=== PATIENT | male | born 1980 | race Caucasian/White ===

== ENCOUNTER 2018-03-17 18:13 | Inpatient (IN) | payer MEDICAID ==
[~2018-03-17] VITALS: Ht 185.4 cm; Wt 96.3 kg
[~2018-03-17 18:13] MED LIST: ASPI-845 PO; ATOR40TA3 PO; LISI-600 PO; OMEP20CA10 PO
[2018-03-17] MEDS ORDERED: nitroGLYCERIN 0.4mg SUBLingual tab SL PRN ×2 (18:35→21:35)
[2018-03-17] MEDS ORDERED: aspirin 81mg tab.chew PO ONE (18:35)
[2018-03-17] MEDS ORDERED: normal saline 1000ml 1,000 ML IV ONE (18:40)
[2018-03-17 18:48] LABS: BASOPHILS % (AUTO) 0.5 % (0-1); EOSINOPHILS # (AUTO) 0.3 X10'3 (0-0.9); EOSINOPHILS % (AUTO) 3.6 % (0-6); HEMATOCRIT 46.7 % (42.0-52.0); HEMOGLOBIN 15.6 g/dl (14.0-17.9); LYMPHOCYTES # (AUTO) 1.4 X10'3 (1.1-4.8); LYMPHOCYTES % (AUTO) 15.6 % (21-51); MEAN CORPUSCULAR HEMOGLOBIN 29.3 PG (27.0-31.0); MEAN CORPUSCULAR HGB CONC 33.5 % (33.0-36.5); MEAN CORPUSCULAR VOLUME 87.5 FL (78-98); MEAN PLATELET VOLUME 7.6 FL (7.4-10.4); MONOCYTES # (AUTO) 0.5 X10'3 (0-0.9); MONOCYTES % (AUTO) 5.9 % (2-12); NEUTROPHILS # (AUTO) 6.4 X10'3 (1.8-7.7); NEUTROPHILS % (AUTO) 74.4 % (42-75); PLATELET COUNT 257 X10'3 (140-440); RED BLOOD COUNT 5.34 X10'6 (4.70-6.10); RED CELL DISTRIBUTION WIDTH 13.7 % (11.5-14.5); WHITE BLOOD COUNT 8.7 X10'3 (4.5-11.0)
[2018-03-17] MEDS ORDERED: LORazepam 2 mg/ml vial IV ONE (19:00)
[2018-03-17 19:04] LABS: INR 0.9 INR; PARTIAL THROMBOPLASTIN TIME 30 SECONDS (22-32); PROTHROMBIN TIME 9.6 SECONDS (9.0-12.0)
[2018-03-17] MEDS ORDERED: RANI150T8 PO (19:07)
[2018-03-17] MEDS ORDERED: SERT100T10 PO (19:07)
[2018-03-17] MEDS ORDERED: CHLO50TA PO (19:07)
[2018-03-17] MEDS ORDERED: DILT120C51 PO (19:07)
[2018-03-17] MEDS ORDERED: ISOS120T9 PO (19:07)
[2018-03-17] MEDS ORDERED: CARV25TA PO (19:07)
[2018-03-17] MEDS ORDERED: NIFE90TA44 PO (19:07)
[2018-03-17] MEDS ORDERED: FLUT16SP2 BOTHNARES (19:07)
[2018-03-17] MEDS ORDERED: CLON-527 PO (19:07)
[2018-03-17] MEDS ORDERED: HYDR25TA4 PO (19:07)
[2018-03-17] MEDS ORDERED: AMIT-189 PO (19:07)
[2018-03-17] MEDS ORDERED: LORA10TA7 PO (19:07)
[2018-03-17] MEDS ORDERED: AMLO2.5T2 PO (19:07)
[2018-03-17 19:08] LABS: ALANINE AMINOTRANSFERASE 50 U/L (12-78); ALBUMIN 3.9 G/DL (3.4-5.0); ALBUMIN/GLOBULIN RATIO 1.1 (1.1-1.5); ALKALINE PHOSPHATASE 96 IU/L (46-116); ANION GAP 13 (8-16); ASPARTATE AMINO TRANSFERASE 27 U/L (10-37); BILIRUBIN,TOTAL 0.3 MG/DL (0.1-1.0); BLOOD UREA NITROGEN 22 MG/DL (7-18); BUN/CREATININE RATIO 11.2 (5.4-32.0); CALCIUM 8.9 MG/DL (8.5-10.1); CHLORIDE 103 MMOL/L (99-107); CREATININE 1.96 MG/DL (0.60-1.10); GLUCOSE 136 MG/DL (70-104); POTASSIUM 3.2 MMOL/L (3.5-5.1); SODIUM 143 MMOL/L (135-145); TOTAL PROTEIN 7.5 G/DL (6.4-8.2); eGFR 39 ML/MIN
[2018-03-17 19:15] LABS: MAGNESIUM 1.8 MG/DL (1.5-2.4)
[2018-03-17 19:58] LABS: D-DIMER 0.29 MG/L FEU (0-0.50)
[2018-03-17] MEDS ORDERED: temazepam 15mg capsule PO PRN (21:00)
[2018-03-17] MEDS ORDERED: amitriptyline 25mg tablet PO SCH ×2 (21:00→23:44)
[2018-03-17] MEDS ORDERED: magnesium hydroxide 30ml (MOM) UD suspension PO PRN (21:30)
[2018-03-17] MEDS ORDERED: ondansetron/PF 4mg/2ml inj IV PRN (21:30)
[2018-03-17] MEDS ORDERED: diphenhydrAMINE 25mg capsule PO PRN (21:30)
[2018-03-17] MEDS ORDERED: morphine 2 MG/ML inj. syringe IV PRN (21:30)
[2018-03-17] MEDS ORDERED: potassium Cl 20 mEq SR tablet PO PRN (21:30)
[2018-03-17] MEDS ORDERED: potassium Cl 40MEQ/NS 500ml 500 ML IV PRN ×2 (21:30)
[2018-03-17] MEDS ORDERED: aspirin 325mg tablet, delayed-release (Ecotrin) PO PRN (21:30)
[2018-03-17] MEDS ORDERED: acetaminophen 325mg tablet PO PRN ×2 (21:30)
[2018-03-17] MEDS ORDERED: HYDROmorphone 1 mg/ml syringe IV PRN (21:30)
[2018-03-17] MEDS ORDERED: metoclopramide 5 mg/ml inj IV PRN (21:30)
[2018-03-17] MEDS ORDERED: HYDROcodone/acetaminophen 10/325mg tab PO PRN (21:30)
[2018-03-17] MEDS ORDERED: bisacodyl 10mg suppository rectal RC PRN (21:30)
[2018-03-17] MEDS ORDERED: acetaminophen 650mg rectal suppository RC PRN (21:30)
[2018-03-17] MEDS ORDERED: mag hydrox/Alum hydrox/simeth 30ml oral suspension PO PRN (21:30)
[2018-03-17] MEDS ORDERED: amitryptiline 50mg tablet PO SCH (21:32)
[2018-03-17] MEDS ORDERED: hydrALAZINE 20mg/ml inj. IV PRN (21:35)
[2018-03-17] MEDS ORDERED: regadenoson 0.4mg/5ml syringe IV ONE (21:35)
[2018-03-17] MEDS ORDERED: metoprolol tartrate 1mg/ml inj IV PRN (21:35)
[2018-03-17] MEDS ORDERED: aminophylline 250mg/10ml inj. IV PRN (21:35)
[2018-03-17] MEDS ORDERED: ondansetron/PF 4mg/2ml inj IV ONE (21:45)
[2018-03-17 21:55] LABS: HEMOGLOBIN A1C 5.3 % (4.5-6.2)
[2018-03-17 22:06] LABS: PHOSPHORUS 1.9 MG/DL (2.3-4.5)
[2018-03-17] MEDS: HYDROmorphone 1 mg/ml syringe IV PRN (22:06)
[2018-03-17 22:18] LABS: URINE AMPHETAMINE SCREEN NEGATIVE (Neg); URINE BARBITUATE SCREEN NEGATIVE (Neg); URINE BENZODIAZEPINES SCREEN NEGATIVE (Neg); URINE CANNABINOID SCREEN POSITIVE (Neg); URINE COCAINE SCREEN NEGATIVE (Neg); URINE METHADONE SCREEN NEGATIVE (Neg); URINE OPIATE SCREEN NEGATIVE (Neg); URINE PHENCYCLIDINE SCREEN NEGATIVE (Neg)
[2018-03-17 22:20] LABS: CLARITY,URINE CLEAR (Clear); COLOR,URINE YELLOW (Yellow); GLUCOSE, URINE NEGATIVE (Neg); KETONES,URINE NEGATIVE (Neg); LEUKOCYTE ESTERASE ,URINE NEGATIVE (Neg); NITRITES, URINE NEGATIVE (Neg); OCCULT BLOOD,URINE SMALL (Neg); PH,URINE 7.5 (4.8-8.0); PROTEIN,URINE NEGATIVE (Neg); UROBILINOGEN,URINE 0.2 E.U/dL (0.2-1.0)
[2018-03-17 22:25] LABS: UA COLLECTION TYPE NON-SPECIFIED
[2018-03-17 22:26] LABS: BACTERIA,URINE FEW /HPF (Neg); SQUAMOUS EPITHELIAL CELL,UR FEW /LPF (FEW); WBC,URINE 0-4 /HPF (0-4)
[2018-03-17 22:27] LABS: RBC,URINE 0-2 /HPF (0-2)
[2018-03-17 23:45] VITALS: BP 181/127
[2018-03-17] MEDS: potassium Cl 20 mEq SR tablet PO PRN (23:51)
[2018-03-17] MEDS: potassium cl 20mEq in 1/2 NS 1,000 ML IV SCH (23:52)
[2018-03-18] VITALS (12 sets, daily range): BP systolic 95–148; BP diastolic 59–100
[2018-03-18] MEDS: HYDROmorphone 1 mg/ml syringe IV PRN ×4 (03:41→23:18)
[2018-03-18 07:03] LABS: BASOPHILS % (AUTO) 0.6 % (0-1); EOSINOPHILS # (AUTO) 0.4 X10'3 (0-0.9); EOSINOPHILS % (AUTO) 4.8 % (0-6); HEMATOCRIT 40.2 % (42.0-52.0); HEMOGLOBIN 13.6 g/dl (14.0-17.9); LYMPHOCYTES # (AUTO) 1.7 X10'3 (1.1-4.8); LYMPHOCYTES % (AUTO) 22.7 % (21-51); MEAN CORPUSCULAR HEMOGLOBIN 29.4 PG (27.0-31.0); MEAN CORPUSCULAR HGB CONC 33.7 % (33.0-36.5); MEAN CORPUSCULAR VOLUME 87.1 FL (78-98); MEAN PLATELET VOLUME 7.8 FL (7.4-10.4); MONOCYTES # (AUTO) 0.8 X10'3 (0-0.9); MONOCYTES % (AUTO) 9.9 % (2-12); NEUTROPHILS # (AUTO) 4.7 X10'3 (1.8-7.7); PLATELET COUNT 222 X10'3 (140-440); RED BLOOD COUNT 4.62 X10'6 (4.70-6.10); WHITE BLOOD COUNT 7.6 X10'3 (4.5-11.0)
[2018-03-18 07:20] LABS: ALANINE AMINOTRANSFERASE 39 U/L (12-78); ALBUMIN 3.1 G/DL (3.4-5.0); ALKALINE PHOSPHATASE 82 IU/L (46-116); ANION GAP 6 (8-16); ASPARTATE AMINO TRANSFERASE 24 U/L (10-37); BILIRUBIN,TOTAL 0.4 MG/DL (0.1-1.0); BLOOD UREA NITROGEN 19 MG/DL (7-18); BUN/CREATININE RATIO 10.7 (5.4-32.0); CALCIUM 8.1 MG/DL (8.5-10.1); CHLORIDE 106 MMOL/L (99-107); CREATININE 1.78 MG/DL (0.60-1.10); GLUCOSE 84 MG/DL (70-104); POTASSIUM 3.7 MMOL/L (3.5-5.1); SODIUM 142 MMOL/L (135-145); TOTAL CARBON DIOXIDE 30.3 MMOL/L (24-32); TOTAL PROTEIN 6.2 G/DL (6.4-8.2); eGFR 43 ML/MIN
[2018-03-18 07:23] LABS: CHOL/HDL RATIO 5.7 (0.00-4.99); CHOLESTEROL 195 MG/DL (0-200); HDL CHOLESTEROL 34 MG/DL (35-60); LDL CHOLESTEROL 128 MG/DL (50-100); TRIGLYCERIDES 210 MG/DL (20-135)
[2018-03-18] MEDS: potassium cl 20mEq in 1/2 NS 1,000 ML IV SCH ×2 (07:28→18:11)
[2018-03-18] MEDS ORDERED: enoxaparin 40mg/0.4ml syringe SQ SCH (08:00)
[2018-03-18] MEDS ORDERED: atorvastatin 20mg tablet PO SCH (08:00)
[2018-03-18] MEDS: K and/or MAG REPLACEMENT MC SCH (08:00)
[2018-03-18] MEDS: Neutra Phos packet PO SCH ×2 (08:04→20:38)
[2018-03-18] MEDS: amLODIPine 5mg tablet PO SCH (08:05)
[2018-03-18] MEDS: famotidine 20mg tablet PO SCH ×2 (08:05→20:39)
[2018-03-18] MEDS: clonazePAM 1mg tablet PO SCH ×2 (08:05→20:38)
[2018-03-18] MEDS: diltiazem CD 120mg capsule (once-daily) PO SCH (08:06)
[2018-03-18] MEDS: sertraline 50mg tablet PO SCH (08:06)
[2018-03-18] MEDS: loratadine 10mg tablet PO SCH (08:06)
[2018-03-18] MEDS: docusate sod 100mg capsule PO SCH ×2 (08:06→20:37)
[2018-03-18] MEDS: isosorbide mononitrate 30mg tab.SR.24H PO SCH (08:07)
[2018-03-18] MEDS: carVEDilol 12.5mg tablet PO SCH ×2 (08:07→20:38)
[2018-03-18 09:10] LABS: C-REACTIVE PROTEIN 0.26 MG/DL (0.0-0.5)
[2018-03-18] MEDS ORDERED: salt irrigation nasal spray 45 ML SPRAY NS PRN (10:30)
[2018-03-18] MEDS ORDERED: aminophylline inj. 10 ML IV ONE (11:30)
[2018-03-18] MEDS ORDERED: regadenoson 0.4mg/5ml syringe IV ONE (11:30)
[2018-03-18] MEDS: NIFEdipine XL 30mg tablet PO SCH (13:18)
[2018-03-18] MEDS: fluticasone nasal spray 16GM bottle NS SCH (13:18)
[2018-03-18] MEDS ORDERED: enoxaparin 100mg/ml syringe SUBCUT SCH (20:00)
[2018-03-19 00:35] VITALS: BP 114/72
[2018-03-19] MEDS: potassium cl 20mEq in 1/2 NS 1,000 ML IV SCH ×2 (03:22→13:28)
[2018-03-19 04:32] LABS: ALANINE AMINOTRANSFERASE 36 U/L (12-78); ALKALINE PHOSPHATASE 89 IU/L (46-116); ANION GAP 8 (8-16); ASPARTATE AMINO TRANSFERASE 21 U/L (10-37); BASOPHILS % (AUTO) 0.6 % (0-1); BILIRUBIN,TOTAL 0.5 MG/DL (0.1-1.0); BLOOD UREA NITROGEN 18 MG/DL (7-18); BUN/CREATININE RATIO 10.7 (5.4-32.0); CALCIUM 8.2 MG/DL (8.5-10.1); CHLORIDE 103 MMOL/L (99-107); CREATININE 1.69 MG/DL (0.60-1.10); EOSINOPHILS # (AUTO) 0.4 X10'3 (0-0.9); EOSINOPHILS % (AUTO) 5.7 % (0-6); GLUCOSE 104 MG/DL (70-104); HEMATOCRIT 41.9 % (42.0-52.0); LYMPHOCYTES # (AUTO) 1.6 X10'3 (1.1-4.8); LYMPHOCYTES % (AUTO) 20.8 % (21-51); MEAN CORPUSCULAR HEMOGLOBIN 29.2 PG (27.0-31.0); MEAN CORPUSCULAR HGB CONC 33.5 % (33.0-36.5); MEAN CORPUSCULAR VOLUME 87.3 FL (78-98); MEAN PLATELET VOLUME 7.7 FL (7.4-10.4); MONOCYTES # (AUTO) 0.6 X10'3 (0-0.9); MONOCYTES % (AUTO) 8.3 % (2-12); NEUTROPHILS % (AUTO) 64.6 % (42-75); PLATELET COUNT 225 X10'3 (140-440); POTASSIUM 3.4 MMOL/L (3.5-5.1); RED BLOOD COUNT 4.81 X10'6 (4.70-6.10); RED CELL DISTRIBUTION WIDTH 13.8 % (11.5-14.5); SODIUM 140 MMOL/L (135-145); TOTAL PROTEIN 6.1 G/DL (6.4-8.2); WHITE BLOOD COUNT 7.7 X10'3 (4.5-11.0); eGFR 46 ML/MIN
[2018-03-19 07:00] VITALS: BP 112/77
[2018-03-19] MEDS: K and/or MAG REPLACEMENT MC SCH (08:00)
[2018-03-19] MEDS: Neutra Phos packet PO SCH (08:00)
[2018-03-19] MEDS ORDERED: atorvastatin 20mg tablet PO SCH (08:00)
[2018-03-19] MEDS ORDERED: aspirin 81mg tablet.DR PO SCH (08:35)
[2018-03-19] MEDS: carVEDilol 12.5mg tablet PO SCH (08:46)
[2018-03-19] MEDS: potassium Cl 20 mEq SR tablet PO PRN (08:46)
[2018-03-19] MEDS: docusate sod 100mg capsule PO SCH (08:46)
[2018-03-19] MEDS: sertraline 50mg tablet PO SCH (08:47)
[2018-03-19] MEDS: isosorbide mononitrate 30mg tab.SR.24H PO SCH (08:47)
[2018-03-19] MEDS: diltiazem CD 120mg capsule (once-daily) PO SCH (08:47)
[2018-03-19] MEDS: loratadine 10mg tablet PO SCH (08:47)
[2018-03-19] MEDS: famotidine 20mg tablet PO SCH (08:48)
[2018-03-19] MEDS: amLODIPine 5mg tablet PO SCH (08:48)
[2018-03-19] MEDS: NIFEdipine XL 30mg tablet PO SCH (08:48)
[2018-03-19] MEDS: clonazePAM 1mg tablet PO SCH (08:48)
[2018-03-19] MEDS: fluticasone nasal spray 16GM bottle NS SCH (08:49)
[2018-03-19] MEDS: HYDROmorphone 1 mg/ml syringe IV PRN ×2 (08:51→13:57)
[2018-03-19 11:00] VITALS: BP 144/60
[2018-03-19] MEDS ORDERED: HYDR-4383 PO (11:34)
== END 2018-03-19 14:33 | disposition home or self-care (01) | DRG 199 ==
LOC: ER 18:14 → ED HOLD 21:28 → SUR 3N 23:38
PROVIDERS: ADMIT Family Medicine; ATTEND Family Medicine
PROC: 4A02XM4 Measurement of Cardiac Total Activity, External Approach (ICD-10-PCS; principal; 2018-03-18)
PROC: 3E033HZ Introduction of Radioactive Substance into Peripheral Vein, Percutaneous Approach (ICD-10-PCS; 2018-03-18)
DX: I16.0 Hypertensive urgency (principal); N17.9 Acute kidney failure, unspecified; E83.39 Other disorders of phosphorus metabolism; N18.3 Chronic kidney disease, stage 3 (moderate); N28.1 Cyst of kidney, acquired; M94.0 Chondrocostal junction syndrome [Tietze]; E78.5 Hyperlipidemia, unspecified; E87.6 Hypokalemia; F12.90 Cannabis use, unspecified, uncomplicated; K76.9 Liver disease, unspecified; I12.9 Hypertensive chronic kidney disease with stage 1 through stage 4 chronic kidney disease, or unspecified chronic kidney disease; I25.10 Atherosclerotic heart disease of native coronary artery without angina pectoris; I25.2 Old myocardial infarction; Z79.899 Other long term (current) drug therapy; Z79.82 Long term (current) use of aspirin; Z82.49 Family history of ischemic heart disease and other diseases of the circulatory system; Z84.1 Family history of disorders of kidney and ureter
CPT/HCPCS: 36415; 71045; 78452; 80053; 80061; 80305; 81001; 83036; 83735; 83880; 84100; 84443; 84484; 85025; 85379; 85610; 85651; 85730; 86140; 87070; 93005; 93017; 93306; 96361; 96374; 99285; A9500; G0378; J0280; J1170; J1650; J2060; J2270; J2405

== ENCOUNTER 2020-05-19 15:40 | Inpatient (IN) | payer MEDICAID ==
[~2020-05-19] VITALS: Ht 185.4 cm; Wt 97.0 kg
[~2020-05-19 15:40] MED LIST changes: +AMIT-189 PO; +AMLO2.5T2 PO; -ATOR40TA3 PO; +ATOR40TA7 PO; +CARV25TA PO; +CLON-527 PO; +DILT120C51 PO; +FLUT16SP2 BOTHNARES; +HYDR-4383 PO; +ISOS120T13 PO; -LISI-600 PO; +LORA10TA7 PO; -OMEP20CA10 PO; +RANI150T8 PO; +SERT100T10 PO
[2020-05-19] MEDS ORDERED: acetaminophen 650mg rectal suppository RC STA (17:14)
[2020-05-19] MEDS ORDERED: cloNIDine 0.1 mg tablet PO ONE (17:15)
[2020-05-19] MEDS ORDERED: ondansetron 4mg rapidly disintigrating tab PO ONE (17:15)
[2020-05-19] MEDS ORDERED: acetaminophen 325mg tablet PO ONE (17:30)
[2020-05-19 17:38] LABS: BASOPHILS % (AUTO) 0.5 % (0-1); EOSINOPHILS # (AUTO) 0.1 X10'3 (0-0.9); EOSINOPHILS % (AUTO) 1.3 % (0-6); HEMATOCRIT 46.9 % (42.0-52.0); HEMOGLOBIN 15.8 g/dl (14.0-17.9); LYMPHOCYTES % (AUTO) 10.6 % (21-51); MEAN CORPUSCULAR HEMOGLOBIN 29.7 PG (27.0-31.0); MEAN CORPUSCULAR HGB CONC 33.6 g/dL (33.0-36.5); MEAN CORPUSCULAR VOLUME 88.4 FL (78-98); MEAN PLATELET VOLUME 8.1 FL (7.4-10.4); MONOCYTES # (AUTO) 0.5 X10'3 (0-0.9); MONOCYTES % (AUTO) 5.3 % (2-12); NEUTROPHILS # (AUTO) 7.6 X10'3 (1.8-7.7); NEUTROPHILS % (AUTO) 82.3 % (42-75); PLATELET COUNT 242 X10'3 (140-440); RED BLOOD COUNT 5.31 X10'6 (4.70-6.10); RED CELL DISTRIBUTION WIDTH 14.3 % (11.5-14.5); WHITE BLOOD COUNT 9.3 X10'3 (4.5-11.0)
[2020-05-19 17:40] LABS: CLARITY,URINE CLEAR (Clear); COLOR,URINE YELLOW (Yellow); GLUCOSE, URINE NEGATIVE (Neg); KETONES,URINE NEGATIVE (Neg); LEUKOCYTE ESTERASE ,URINE NEGATIVE (Neg); NITRITES, URINE NEGATIVE (Neg); OCCULT BLOOD,URINE SMALL (Neg); PROTEIN,URINE 100 mg/dl (Neg); UROBILINOGEN,URINE 0.2 E.U/dL (0.2-1.0)
[2020-05-19 17:43] LABS: UA COLLECTION TYPE CLN CATCH MIDSTREAM
[2020-05-19 17:46] LABS: ALANINE AMINOTRANSFERASE 22 U/L (12-78); ALBUMIN/GLOBULIN RATIO 1.3 (1.1-1.5); ALKALINE PHOSPHATASE 89 IU/L (46-116); ANION GAP 9 (8-16); ASPARTATE AMINO TRANSFERASE 17 U/L (10-37); BILIRUBIN,TOTAL 0.7 MG/DL (0.1-1.0); BLOOD UREA NITROGEN 34 MG/DL (7-18); BUN/CREATININE RATIO 10.3 (5.4-32.0); CALCIUM 8.4 MG/DL (8.5-10.1); CHLORIDE 105 MMOL/L (99-107); CREATININE 3.31 MG/DL (0.60-1.10); GLUCOSE 94 MG/DL (70-104); POTASSIUM 3.6 MMOL/L (3.5-5.1); SODIUM 141 MMOL/L (135-145); TOTAL PROTEIN 7.1 G/DL (6.4-8.2); eGFR 21 ML/MIN
[2020-05-19 17:48] LABS: TROPONIN I < 0.04 NG/ML (0.0-0.05)
[2020-05-19 17:51] LABS: BACTERIA,URINE FEW /HPF (Neg); RBC,URINE 0-2 /HPF (0-2); SQUAMOUS EPITHELIAL CELL,UR NONE SEEN /LPF (FEW); WBC,URINE 0-4 /HPF (0-4)
--- NOTE | 2020-05-19 18:21 | NUR ---
Assumed care of Pt. He is resting in bed, complaining of headache with no other complaints at this time, no obvious distress noted.
[2020-05-19] MEDS ORDERED: normal saline 1000ML IV soln IVB ONE (18:35)
[2020-05-19] MEDS ORDERED: ASPI-1265 PO (19:31)
[2020-05-19] MEDS ORDERED: AMLO10TA PO (19:31)
[2020-05-19] MEDS ORDERED: CARV6.252 PO (19:31)
[2020-05-19] MEDS ORDERED: mag hydrox/Alum hydrox/simeth 30ml oral suspension PO PRN (20:10)
[2020-05-19] MEDS ORDERED: magnesium 2GM in 50ml NS 50 ML IV PRN (20:10)
[2020-05-19] MEDS ORDERED: potassium Cl 20 mEq SR tablet PO PRN ×2 (20:10)
[2020-05-19] MEDS ORDERED: potassium Cl 40MEQ/1/2NS 520ml 520 ML IV PRN ×2 (20:10)
[2020-05-19] MEDS ORDERED: magnesium Cl slow-release 64mg tablet PO PRN (20:10)
[2020-05-19] MEDS ORDERED: ondansetron/PF 4mg/2ml inj IV PRN (20:10)
[2020-05-19] MEDS ORDERED: acetaminophen 325mg tablet PO PRN (20:10)
[2020-05-19] MEDS ORDERED: magnesium 4gm in 100ml NS 100 ML IV PRN (20:10)
[2020-05-19] MEDS ORDERED: magnesium hydroxide 30ml (MOM) UD suspension PO PRN (20:10)
[2020-05-19] MEDS ORDERED: ondansetron/PF 4mg/2ml inj IM PRN (20:20)
--- NOTE | 2020-05-19 20:50 | NUR ---
pt to floor
[2020-05-19 21:00] VITALS: BP 176/108
--- NOTE | 2020-05-19 21:10 | NUR ---
Rcvd report from Charo MONROE in ED
[2020-05-19 21:12] LABS: D-DIMER 0.56 MG/L FEU (0-0.50)
[2020-05-19 21:14] LABS: C-REACTIVE PROTEIN 0.27 MG/DL (0.0-0.5)
[2020-05-19] MEDS ORDERED: carVEDilol 3.125mg tablet PO SCH (22:00)
[2020-05-19] MEDS: normal saline 1000ml 1,000 ML IV SCH (22:16)
[2020-05-19] MEDS ORDERED: ESCI10TA66 PO (22:24)
[2020-05-19] MEDS ORDERED: MIRT15TA8 PO (22:24)
[2020-05-19] MEDS ORDERED: HYDR-3717 PO (22:24)
[2020-05-19] MEDS: K and/or MAG REPLACEMENT MC SCH (22:38)
[2020-05-19 23:18] VITALS: BP 157/85
[2020-05-20] MEDS: oxymetazoline 15 ML nasal spray NS SCH ×3 (00:26→21:18)
[2020-05-20 02:00] VITALS: BP 148/84
[2020-05-20 06:00] VITALS: BP 94/74
[2020-05-20] MEDS: normal saline 1000ml 1,000 ML IV SCH ×3 (06:10→21:19)
--- NOTE | 2020-05-20 06:10 | NUR ---
Patient in room ORTHO 4014. I have received report from Adia and had the opportunity to ask questions and assume patient care.
--- NOTE | 2020-05-20 06:21 | NUR ---
Problems reprioritized. Patient report given, questions answered & plan of care reviewed with Lina MONROE.
[2020-05-20 07:32] LABS: HEMATOCRIT 43.5 % (42.0-52.0); HEMOGLOBIN 14.7 g/dl (14.0-17.9); MEAN CORPUSCULAR HEMOGLOBIN 30.1 PG (27.0-31.0); MEAN CORPUSCULAR HGB CONC 33.8 g/dL (33.0-36.5); MEAN CORPUSCULAR VOLUME 89.2 FL (78-98); PLATELET COUNT 182 X10'3 (140-440); RED BLOOD COUNT 4.87 X10'6 (4.70-6.10); RED CELL DISTRIBUTION WIDTH 14.5 % (11.5-14.5); WHITE BLOOD COUNT 6.1 X10'3 (4.5-11.0)
[2020-05-20 07:41] LABS: ALBUMIN 3.4 G/DL (3.4-5.0); ANION GAP 11 (8-16); BLOOD UREA NITROGEN 30 MG/DL (7-18); BUN/CREATININE RATIO 10.4 (5.4-32.0); CALCIUM 8.1 MG/DL (8.5-10.1); CHLORIDE 108 MMOL/L (99-107); CREATININE 2.88 MG/DL (0.60-1.10); GLUCOSE 85 MG/DL (70-104); MAGNESIUM 1.9 MG/DL (1.5-2.4); POTASSIUM 3.7 MMOL/L (3.5-5.1); SODIUM 144 MMOL/L (135-145); TOTAL CARBON DIOXIDE 24.7 MMOL/L (24-32); eGFR 25 ML/MIN
[2020-05-20] MEDS ORDERED: non-formulary drug (Amlodipine Besylate 1 TABLET) PO SCH (08:00)
[2020-05-20] MEDS ORDERED: carvedilol 6.25mg tablet PO SCH (08:00)
[2020-05-20] MEDS: famotidine 20mg tablet PO SCH ×2 (08:01→21:11)
[2020-05-20] MEDS: hydrOXYzine 10 MG tablet PO SCH ×3 (08:01→21:11)
[2020-05-20] MEDS: carvedilol 6.25mg tablet PO SCH ×2 (08:01→21:11)
[2020-05-20] MEDS: loratadine 10mg tablet PO SCH (08:01)
[2020-05-20] MEDS: ESCITALOPRAM OXALATE 5 MG TABLET PO SCH (08:02)
[2020-05-20] MEDS: amLODIPine 5mg tablet PO SCH (08:02)
[2020-05-20] MEDS: aspirin 81mg tab.chew PO SCH (08:03)
[2020-05-20 10:00] VITALS: BP 106/73
[2020-05-20 14:00] VITALS: BP 137/101
--- NOTE | 2020-05-20 14:32 | NUR ---
promotional table spacer PAGER ID: [phone] MESSAGE: [id number] OFE DURAN Pt nauseous after eating 25% pf meal. Hes not sure if he feels safe going home tonight might need one more night. #[id number] Lina (144 character message out of a maximum of 240)
[2020-05-20 18:00] VITALS: BP 157/88
[2020-05-20 19:18] LABS: OCCULT BLOOD STOOL NEGATIVE (Neg)
[2020-05-20] MEDS: K and/or MAG REPLACEMENT MC SCH (20:00)
[2020-05-20] MEDS: mirtazapine 15mg tablet PO SCH (21:11)
[2020-05-20 22:00] VITALS: BP 130/83
[2020-05-20] MEDS: HYDROcodone/acetaminophen 5mg/325mg tablet PO PRN (23:17)
[2020-05-21 02:00] VITALS: BP 159/79
[2020-05-21 06:10] VITALS: BP 146/84
--- NOTE | 2020-05-21 06:30 | NUR ---
Patient in room ORTHO 4014. I have received report from Ashli RN and had the opportunity to ask questions and assume patient care.
[2020-05-21 07:14] LABS: HEMATOCRIT 45.1 % (42.0-52.0); HEMOGLOBIN 15.1 g/dl (14.0-17.9); MEAN CORPUSCULAR HEMOGLOBIN 29.7 PG (27.0-31.0); MEAN CORPUSCULAR HGB CONC 33.4 g/dL (33.0-36.5); MEAN CORPUSCULAR VOLUME 88.8 FL (78-98); MEAN PLATELET VOLUME 7.9 FL (7.4-10.4); PLATELET COUNT 180 X10'3 (140-440); RED BLOOD COUNT 5.08 X10'6 (4.70-6.10); RED CELL DISTRIBUTION WIDTH 14.5 % (11.5-14.5)
[2020-05-21 07:19] LABS: ALBUMIN 3.5 G/DL (3.4-5.0); ANION GAP 10 (8-16); BLOOD UREA NITROGEN 26 MG/DL (7-18); BUN/CREATININE RATIO 9.3 (5.4-32.0); CALCIUM 8.3 MG/DL (8.5-10.1); CHLORIDE 109 MMOL/L (99-107); CREATININE 2.81 MG/DL (0.60-1.10); GLUCOSE 84 MG/DL (70-104); MAGNESIUM 1.9 MG/DL (1.5-2.4); POTASSIUM 3.7 MMOL/L (3.5-5.1); SODIUM 144 MMOL/L (135-145); TOTAL CARBON DIOXIDE 24.8 MMOL/L (24-32); eGFR 25 ML/MIN
[2020-05-21] MEDS: HYDROcodone/acetaminophen 5mg/325mg tablet PO PRN ×3 (07:19→20:02)
[2020-05-21] MEDS: aspirin 81mg tab.chew PO SCH (07:19)
[2020-05-21] MEDS: loratadine 10mg tablet PO SCH (07:19)
[2020-05-21] MEDS: hydrOXYzine 10 MG tablet PO SCH ×3 (07:19→20:01)
[2020-05-21] MEDS: famotidine 20mg tablet PO SCH ×2 (07:19→20:01)
[2020-05-21] MEDS: amLODIPine 5mg tablet PO SCH (07:20)
[2020-05-21] MEDS: ESCITALOPRAM OXALATE 5 MG TABLET PO SCH (07:20)
[2020-05-21] MEDS: K and/or MAG REPLACEMENT MC SCH ×2 (08:00→20:00)
[2020-05-21] MEDS: normal saline 1000ml 1,000 ML IV SCH ×2 (08:09→18:08)
[2020-05-21] MEDS: ondansetron/PF 4mg/2ml inj IV PRN (08:13)
[2020-05-21] MEDS: oxymetazoline 15 ML nasal spray NS SCH ×2 (08:41→20:02)
[2020-05-21] MEDS: carvedilol 6.25mg tablet PO SCH ×2 (09:49→20:02)
[2020-05-21 10:00] VITALS: BP 159/102
[2020-05-21 14:00] VITALS: BP 174/112
--- NOTE | 2020-05-21 14:15 | NUR ---
paged Dr. Stewart regarding patient high BP and patient headache.
[2020-05-21] MEDS ORDERED: cloNIDine 0.1 mg tablet PO ONE (14:25)
[2020-05-21] MEDS: morphine 2 MG/ML inj. syringe IV PRN ×2 (15:09→22:51)
[2020-05-21 18:00] VITALS: BP 164/111
--- NOTE | 2020-05-21 18:08 | NUR ---
Patient report given to Kira MONROE
[2020-05-21] MEDS: mirtazapine 15mg tablet PO SCH (20:01)
[2020-05-21 22:00] VITALS: BP 144/95
[2020-05-22 02:00] VITALS: BP 96/38
[2020-05-22] MEDS: normal saline 1000ml 1,000 ML IV SCH (03:26)
[2020-05-22 06:10] VITALS: BP 156/93
--- NOTE | 2020-05-22 06:12 | NUR ---
Problems reprioritized. Patient report given, questions answered & plan of care reviewed with Vivi MONROE.
[2020-05-22 07:13] LABS: HEMATOCRIT 47.3 % (42.0-52.0); HEMOGLOBIN 15.9 g/dl (14.0-17.9); MEAN CORPUSCULAR HEMOGLOBIN 29.8 PG (27.0-31.0); MEAN CORPUSCULAR HGB CONC 33.7 g/dL (33.0-36.5); MEAN CORPUSCULAR VOLUME 88.5 FL (78-98); MEAN PLATELET VOLUME 8.1 FL (7.4-10.4); PLATELET COUNT 207 X10'3 (140-440); RED BLOOD COUNT 5.35 X10'6 (4.70-6.10); RED CELL DISTRIBUTION WIDTH 14.1 % (11.5-14.5); WHITE BLOOD COUNT 7.1 X10'3 (4.5-11.0)
[2020-05-22 07:23] LABS: ALBUMIN 3.7 G/DL (3.4-5.0); ANION GAP 10 (8-16); BLOOD UREA NITROGEN 23 MG/DL (7-18); BUN/CREATININE RATIO 8.5 (5.4-32.0); CALCIUM 8.4 MG/DL (8.5-10.1); CHLORIDE 109 MMOL/L (99-107); GLUCOSE 88 MG/DL (70-104); MAGNESIUM 1.9 MG/DL (1.5-2.4); POTASSIUM 3.3 MMOL/L (3.5-5.1); SODIUM 145 MMOL/L (135-145); TOTAL CARBON DIOXIDE 25.6 MMOL/L (24-32); eGFR 27 ML/MIN
[2020-05-22] MEDS: aspirin 81mg tab.chew PO SCH (07:53)
[2020-05-22] MEDS: loratadine 10mg tablet PO SCH (07:53)
[2020-05-22] MEDS: famotidine 20mg tablet PO SCH (07:53)
[2020-05-22] MEDS: hydrOXYzine 10 MG tablet PO SCH (07:53)
[2020-05-22] MEDS: ESCITALOPRAM OXALATE 5 MG TABLET PO SCH (07:53)
[2020-05-22] MEDS: amLODIPine 5mg tablet PO SCH (07:58)
[2020-05-22] MEDS: HYDROcodone/acetaminophen 5mg/325mg tablet PO PRN (07:58)
[2020-05-22] MEDS: carvedilol 6.25mg tablet PO SCH (07:58)
[2020-05-22] MEDS: oxymetazoline 15 ML nasal spray NS SCH (08:00)
[2020-05-22] MEDS: K and/or MAG REPLACEMENT MC SCH (08:00)
[2020-05-22] MEDS: ondansetron/PF 4mg/2ml inj IV PRN (09:32)
[2020-05-22 10:00] VITALS: BP 148/105
[2020-05-22] MEDS: morphine 2 MG/ML inj. syringe IV PRN (11:43)
[2020-05-22] MEDS ORDERED: ONDA4TAB6 PO (12:00)
[2020-05-22] MEDS ORDERED: HYDR-3965 PO (12:00)
== END 2020-05-22 14:05 | disposition home or self-care (01) | DRG 137 ==
LOC: ER 15:41 → ORTHO 4S 20:10 → CMPBEDREQ 05-20 20:01
PROVIDERS: ADMIT Internal Medicine; ATTEND Internal Medicine
DX: U07.1 COVID-19 (principal); E78.5 Hyperlipidemia, unspecified; E86.0 Dehydration; F32.9 Major depressive disorder, single episode, unspecified; I12.9 Hypertensive chronic kidney disease with stage 1 through stage 4 chronic kidney disease, or unspecified chronic kidney disease; R19.7 Diarrhea, unspecified; K21.9 Gastro-esophageal reflux disease without esophagitis; F12.90 Cannabis use, unspecified, uncomplicated; N17.9 Acute kidney failure, unspecified; N18.30 Chronic kidney disease, stage 3 unspecified; Q61.3 Polycystic kidney, unspecified; I25.2 Old myocardial infarction; Z79.899 Other long term (current) drug therapy; Z82.49 Family history of ischemic heart disease and other diseases of the circulatory system; Z79.82 Long term (current) use of aspirin
CPT/HCPCS: 36415; 71045; 76775; 80048; 80053; 81001; 82272; 83735; 84145; 84484; 85025; 85027; 85379; 86140; 87081; 87635; 89055; 93005; 93306; 93308; 99285; C9803; G0378; J2270; J2405; J7030

== ENCOUNTER 2022-05-20 05:51 | Day surgery (SDC) | payer MEDICAID ==
[2022-05-19 10:44] LABS: BASOPHILS # (AUTO) 0.1 X10'3 (0-0.2); BASOPHILS % (AUTO) 0.7 % (0-1); EOSINOPHILS # (AUTO) 0.3 X10'3 (0-0.9); EOSINOPHILS % (AUTO) 3.6 % (0-6); LYMPHOCYTES # (AUTO) 0.9 X10'3 (1.1-4.8); LYMPHOCYTES % (AUTO) 12.1 % (21-51); MEAN CORPUSCULAR HEMOGLOBIN 27.9 PG (27.0-31.0); MEAN CORPUSCULAR HGB CONC 32.9 g/dL (33.0-36.5); MEAN CORPUSCULAR VOLUME 84.8 FL (78-98); MEAN PLATELET VOLUME 8.7 FL (7.4-10.4); MONOCYTES # (AUTO) 0.6 X10'3 (0-0.9); MONOCYTES % (AUTO) 8.3 % (2-12); NEUTROPHILS # (AUTO) 5.3 X10'3 (1.8-7.7); NEUTROPHILS % (AUTO) 75.3 % (42-75); PRE OP HEMATOCRIT 46.6 % (42.0-52.0); PRE OP HEMOGLOBIN 15.3 g/dL (14.0-17.9); PRE OP PLATELET COUNT 194 X10'3 (140-440); RED BLOOD COUNT 5.49 X10'6 (4.70-6.10); RED CELL DISTRIBUTION WIDTH 15.9 % (11.5-14.5)
[2022-05-19 10:57] LABS: ALBUMIN 4.1 G/DL (3.4-5.0); ALBUMIN/GLOBULIN RATIO 1.3 (1.1-1.5); ALKALINE PHOSPHATASE 86 IU/L (46-116); BLOOD UREA NITROGEN 49 MG/DL (7-18); BUN/CREATININE RATIO 7.4 (5.4-32.0); CALCIUM 9.2 MG/DL (8.5-10.1); CHLORIDE 106 MMOL/L (99-107); CREATININE 6.58 MG/DL (0.60-1.10); PRE OP ALT 14 U/L (30-65); PRE OP ANION GAP 12 (8-16); PRE OP AST 13 U/L (10-37); PRE OP BILIRUB, TOTAL 0.6 MG/DL (0.0-1.0); PRE OP GLUCOSE 107 MG/DL (70-104); PRE OP POTASSIUM 3.5 MMOL/L (3.4-5.1); PRE OP SODIUM 141 MMOL/L (135-145); TOTAL PROTEIN 7.2 G/DL (6.4-8.2); eGFR 9 ML/MIN
[2022-05-19 11:10] LABS: COLOR,URINE YELLOW (Yellow); GLUCOSE, URINE NEGATIVE (Neg); KETONES,URINE NEGATIVE (Neg); LEUKOCYTE ESTERASE ,URINE SMALL (Neg); NITRITES, URINE NEGATIVE (Neg); OCCULT BLOOD,URINE TRACE-INTACT (Neg); PROTEIN,URINE 100 mg/dl (Neg); UROBILINOGEN,URINE 0.2 E.U/dL (0.2-1.0)
[2022-05-19 11:25] LABS: CLARITY,URINE SLIGHTLY CLOUDY (Clear); UA COLLECTION TYPE CLN CATCH MIDSTREAM
[2022-05-19 11:26] LABS: BACTERIA,URINE 1+ /HPF (Neg); MUCUS STRANDS NONE SEEN /LPF (Neg); RBC,URINE 0-2 /HPF (0-2); SQUAMOUS EPITHELIAL CELL,UR FEW /LPF (FEW)
[2022-05-19 11:27] LABS: WBC CLUMPS,URINE FEW /HPF (NEGATIVE)
[2022-05-20] VITALS (13 sets, daily range): BP systolic 120–188; BP diastolic 75–110
[~2022-05-20] VITALS: Ht 185.4 cm; Wt 90.7 kg
[~2022-05-20 05:51] MED LIST changes: -AMIT-189 PO; -AMLO2.5T2 PO; -ASPI-845 PO; -ATOR40TA7 PO; +ATOR40TA72 PO; -CARV25TA PO; +CARV6.252 PO; -CLON-527 PO; -DILT120C51 PO; +DOCUMENT DATE & TIME OF BETA-BLOCKER PO ONE; +ESCI-8 PO; +FAMO20TA8 PO; -FLUT16SP2 BOTHNARES; -HYDR-4383 PO; -ISOS120T13 PO; +ISOS30TA84 PO; -LORA10TA7 PO; -RANI150T8 PO; -SERT100T10 PO; +ceFAZolin inj. 2,000 MG in dextrose 5%-water 100 ML IV ONE; +famotidine 20mg tablet PO ONE
[2022-05-20] MEDS ORDERED: normal saline 500ml IV soln 500 ML IV ONE (06:00)
[2022-05-20] MEDS ORDERED: heparin sodium, porcine/PF 100unit/ml 5ML syringe ONE (07:17)
[2022-05-20] MEDS ORDERED: BUPIVAcaine 0.25% w/Epi /PF 30ml vial ONE (07:17)
[2022-05-20] MEDS ORDERED: mupirocin 2% ointment 22GM ONE (07:18)
[2022-05-20] MEDS ORDERED: sevoflurane 250ml liquid IH ONE (07:38)
[2022-05-20] MEDS ORDERED: FENTANYL CITRATE/PF 50 MCG/1 ML VIAL ONE (07:42)
[2022-05-20] MEDS ORDERED: propofol inj 20 ML IV ONE (07:42)
[2022-05-20] MEDS ORDERED: midazolam 1 mg/ML 2ml injection ONE (07:42)
[2022-05-20] MEDS ORDERED: rocuronium 10mg/ml inj IV ONE (07:44)
[2022-05-20] MEDS ORDERED: dexamethasone sod phosphate 4mg/ml inj. ONE (08:03)
[2022-05-20] MEDS ORDERED: BUPIVAcaine 0.5% inj/PF 30 ml vial IJ ONE (08:14)
[2022-05-20] MEDS ORDERED: ondansetron/PF 4mg/2ml inj ONE (08:26)
[2022-05-20] MEDS ORDERED: sugammadex 200mg/2ml injection IV ONE (08:31)
[2022-05-20] MEDS ORDERED: glycopyrrolate 0.2mg/ml inj ONE (08:35)
[2022-05-20] MEDS ORDERED: neostigmine methylsulfate 1 MG/ML 10ml vial ONE (08:35)
[2022-05-20] MEDS ORDERED: meperidine/PF 25mg/ml syringe IV PRN ×3 (08:45)
[2022-05-20] MEDS ORDERED: morphine 4 MG/ML inj SYRINge IV PRN (08:45)
[2022-05-20] MEDS ORDERED: labetalol 20mg/4ml (5mg/ml) syringe IV PRN (08:45)
[2022-05-20] MEDS ORDERED: ondansetron/PF 4mg/2ml inj IV PRN (08:45)
[2022-05-20] MEDS ORDERED: ringers solution, lacted 1,000 ML IV SCH (08:45)
[2022-05-20] MEDS ORDERED: enalaprilat dihydrate 2.5mg/2ml vial IV PRN (08:45)
[2022-05-20] MEDS ORDERED: proCHLORperazine 10 MG/2 ml inj IV PRN (08:45)
--- NOTE | 2022-05-20 08:45 | NUR ---
Received from OR via [facility], accompanied by Anesthesiologist DR SNYDER and report given by Anesthesiolgist. PT IS GROGGY BUT FOLLOWING COMMANDS AND ANSWERING QUESTIONS APPROPRIATELY. PT PLACED ON BEDSIDE MONITOR, VSS. PT IS HYPERTENSIVE AND MD IS AWARE. PT IS IN SR WITH PVC'S NOTED. RECEIVING 8L O2 TO MASK AND TOLERATING WELL WITH O2 SAT > 96%. PT HAS 20G PIV TP LEFT HAND WITH NS INFUSING ORDERED. PT HAS 3 SMALL INCISIONS TO ABD THAT ARE ALL CDI AND DERMABOND IN PLACE, PD CATH TO LEFT LOWER ABD. PT DENIES PAIN AT THIS TIME. WILL CONTINUE TO ASSESS
[2022-05-20] MEDS: morphine 2 MG/ML inj. syringe IV PRN ×2 (09:19→10:01)
[2022-05-20] MEDS ORDERED: HYDROcodone/acetaminophen 10/325mg tab PO ONE (09:45)
--- NOTE | 2022-05-20 10:35 | NUR ---
COMPAZINE GIVEN D/T PT VOMITING AND RECEIVED ZOFRAN IN OR. WILL CONTINUE TO ASSESS
--- NOTE | 2022-05-20 11:28 | NUR ---
ABLE TO SAFELY AMBULATE AND TRANSFER SELF AN DIS VOIDING. IV TAKEN OUT WITHOUT ANY COMPLICATIONS. ALL DISCHARGE INSTRUCTIONS COVERED WITH PATIENT AND ALL QUESTIONS ANSWERED. PATIENT TAKEN OUT VIA WHEELCHAIR TO PERSONAL VEHICLE WHERE FAMILY/FRIEND DROVE PATIENT HOME.
== END 2022-05-20 11:12 | disposition home or self-care (01) ==
LOC: PAS 05:51
PROVIDERS: ATTEND Surgery
DX: I12.0 Hypertensive chronic kidney disease with stage 5 chronic kidney disease or end stage renal disease (principal); N18.6 End stage renal disease; I25.2 Old myocardial infarction; F43.10 Post-traumatic stress disorder, unspecified; Z84.1 Family history of disorders of kidney and ureter; Z98.890 Other specified postprocedural states; Z82.49 Family history of ischemic heart disease and other diseases of the circulatory system; Z96.649 Presence of unspecified artificial hip joint; Z79.899 Other long term (current) drug therapy
CPT/HCPCS: 36415; 49324; 80053; 81001; 82948; 85025; 87088; 93005; C1750; J0690; J0780; J1100; J1642; J2175; J2250; J2270; J2405; J2704; J2710; J3010; J3490; J7040; J7060; S0020; Z7506; Z7508; Z7512; A4215; A4618; A7000